=== PATIENT | female | born 1950 | race Caucasian/White ===

== ENCOUNTER → 2017-01-16 | Outpatient (CLI) | payer MEDICARE ==
[~2017-01-16] MED LIST: ATIVAN1 MG PO; LISINOPRIL10 MG PO; METOPROLOL100 MG PO
== END | disposition home or self-care (01) ==
LOC: US 01-02 12:30
DX: Z12.31 Encounter for screening mammogram for malignant neoplasm of breast (principal); I65.23 Occlusion and stenosis of bilateral carotid arteries; I10 Essential (primary) hypertension

== ENCOUNTER 2019-01-23 06:20 | Inpatient (IN) | payer MEDICARE ==
[2019-01-23] VITALS (52 sets, daily range): BP systolic 73–147; BP diastolic 00–83
[~2019-01-23] VITALS: Ht 162.6 cm; Wt 57.0 kg
--- NOTE | ~2019-01-23 | PR ---
[place], [place] PROGRESS NOTE NAME: RAQUEL PITTS UNIT #: [id number] ROOM: 407 DOCTOR: BENITA PRUITT MD,BREANN BIRTHDATE: [birth year] DOS: 01/28/2019 SUBJECTIVE: The patient was noted comfortable at this time, resting in the bed this morning of assessment was planned for the cardiac workup patient's stress testing. Plan to be done today. From pulmonary standpoint, the patient continued to do very well with current medical management with improvement in reduction of symptoms of shortness of breath. There was no coughing, wheezing stated by the patient at this time. OBJECTIVE: GENERAL: She was comfortably resting at this morning of assessment. VITAL SIGNS: Normal temperature, respiratory rate 20, heart rate 92, blood pressure 130/79. Pulse oxygen saturation on 3 L nasal cannula 94% saturation recorded. HEENT: Head was atraumatic. Eyes nonicterus. NECK: Supple. CARDIOVASCULAR: S1, S2 audible. LUNGS: Without any wheezing or crackles at this time. ABDOMEN: Soft, nontender. Bowel sounds present. EXTREMITIES: The patient was noted without any acute edema. MUSCULOSKELETAL: Without acute deformities. IMPRESSION: The patient with resolving and improving acute respiratory failure with hypoxia and hypercapnia, abnormal troponin to rule out coronary artery disease. PLAN OF MANAGEMENT: No changes in the plan of management at this time. Continue to follow the current medical management, plan and proceed with the cardiac workup. The patient already started tapering dose of prednisone, to follow the management of that. BREANN JOY MD CM:PNTRANS [id number] BRENAN PRUITT MD 01/28/19 2323 interface
--- NOTE | ~2019-01-23 | PR ---
[place], [place] PROGRESS NOTE [id number] UNIT #: [id number] ROOM: 404 DOCTOR: BENITA PRUITT MD,BREANN BIRTHDATE: [birth year] DOS: 01/29/2019 SUBJECTIVE: She has been noted comfortable at this time, resting in the bed, underwent cardiac stress testing yesterday. She denies symptoms of fever or chills. Denies symptoms of hemoptysis. The ejection fraction noted 59% with the stress testing yesterday. There was no evidence of ischemia or infarction was reported. PHYSICAL EXAMINATION: GENERAL: She was currently sitting comfortably in the bed this morning of assessment. VITAL SIGNS: Normal temperature, respiratory rate 16, heart rate 89, and blood pressure 149/79. Pulse oxygen saturation on 3 liters nasal cannula 94% saturation. HEENT: Examination shows head was atraumatic. Eyes nonicterus. NECK: Supple. CARDIOVASCULAR: S1, S2 audible. LUNGS: Noted moderate decreased breath sounds noted in the lungs bilaterally. ABDOMEN: Soft, nontender. IMPRESSION: Stable respiratory status, resolving acute hypercapnic hypoxic respiratory failure. Abnormal troponin, significance unknown. PLAN OF MANAGEMENT: No changes in the plan of management, discharge planning could be started, oral medications and home oxygen assessment was ordered prior to discharge. Other therapy, plan of management. Additional treatment changes made based on progression of illness. Outpatient ____ the patient recommended post-discharge. BREANN JOY MD CM:PNTRANS [id number] BREANN PRUITT MD 01/29/19 1504 interface
--- NOTE | ~2019-01-23 | PR ---
[place], [place] PROGRESS NOTE [id number] UN[facility] #: [id number] ROOM: [facility] DOCTOR: BRANDI BALL,PANCHO BIRTHDATE: [birth year] DOS: 01/25/2019 CARDIOLOGY FOLLOWUP VISIT REASON FOR VISIT: Elevated cardiac enzymes and sinus tachycardia. SUBJECTIVE: The patient is alert. She is off the ventilator yesterday. Denies any chest pain. Still short of breath. No PND, no orthopnea, no palpitations or dizziness. No nausea or vomiting. REVIEW OF SYSTEMS: Review of 10 systems negative except as mentioned above. PHYSICAL EXAMINATION: VITAL SIGNS: Blood pressure 118/65, pulse 96, respiratory rate was 18. RHYTHM STRIPS: The patient in sinus rhythm with ventricular ectopy. GENERAL: Alert, comfortable, in no acute distress. HEAD AND NECK: Pupils are round and equal. No jaundice. TONGUE: Moist and pharynx clear. NECK: Supple, no distended neck veins. No carotid bruit. CHEST: Symmetrical, nontender. LUNGS: A few scattered rhonchi. Good air entry bilaterally. HEART: Slightly irregular. No S3. Grade 1/6 systolic murmur. ABDOMEN: Benign, nontender. EXTREMITIES: Showed no edema. Distal pulses palpable. SKIN: Warm and dry. No cyanosis, no clubbing. NEUROLOGIC: The patient is alert with no focal neurologic deficit. RECTAL: Deferred. GENITOURINARY: Deferred. PSYCHIATRIC: The patient is alert with good mood and affect. MUSCULOSKELETAL: No joint tenderness, no swelling. MEDICATIONS: Reviewed. LABORATORY DATA: Reviewed. IMPRESSION: 1. Acute respiratory failure, currently stable. The patient off ventilator. 2. Elevated troponin, likely type 2 non-ST elevation myocardial infarction from demand ischemia. 3. Left ventricular dysfunction with ejection fraction 35% with apical anterior wall motion abnormality, slightly dilated apex, possible Takotsubo syndrome versus ischemic heart disease. 4. Chronic obstructive pulmonary disease exacerbation. 5. Sinus tachycardia. 6. Ventricular ectopy. RECOMMENDATIONS: 1. Continue current medications including beta blockers. 2. Add lisinopril 2.5 mg once daily for left ventricular dysfunction. 3. The patient has no volume overload, has no need for any diuretics at this [place], [place] PROGRESS NOTE NAME: RAQUEL PITTS UNIT #: [id number] ROOM: [facility] DOCTOR: BRANDI BALL,PANCHO BIRTHDATE: [birth year] time. 4. The patient can be transferred due to moderate stepdown. 5. Tentative Lexiscan stress test on Monday versus cardiac catheterization, this will be finalized during the weekend based on her symptoms and hospital course. Above recommendation discussed with the patient and her family members who were at bedside and all her questions were answered. Risks and complications of cardiac catheterization, angioplasty, stent and also possible bypass were discussed with the patient and she will think about if she wanted to go for open heart surgery if she needs it. If she does not want open heart surgery, probably I would not recommend cardiac catheterization and proceed with Lexiscan stress test on Monday. PANCHO PAZ MD CM:PNTRANS 01 8 PNACHO PAZ MD 01/26/19 0159 interface
--- NOTE | ~2019-01-23 | PR ---
[place], [place] PROGRESS NOTE NAME: [facility]IT[id number] UNIT #: [id number] ROOM: 404 DOCTOR: BENITA PRUITT MD,BREANN BIRTHDATE: [birth year] DOS: 01/24/2019 PULMONARY CRITICAL CARE EVALUATION AND MANAGEMENT SUBJECTIVE: The patient was transferred from the ER and remains in the Intensive Care Unit. The patient was also started on fractionated heparin because of elevated troponin, possible consideration of non-ST segment elevation myocardial infarction. The patient has been sedated with intravenous drip and Versed combination. This morning, the patient's sedation was decreased, she was noted fully awake and alert, a little bit anxious, but able to follow vocal commands moving the extremities. She has not been noted much secretion production, endotracheal aspirate, which was done in the last 24 hours. The patient has not been reported any major acute hemodynamic instability, which were new, but is required vasopressor use with Levophed, which have been gradually titrated down with improvement in the hypotension. She was noted with mild sinus tachycardia. The patient has been started this morning on the Lopressor, which has been usually taking home setting per Cardiology advice. The feeding was continued the trophic feeding, which has been tolerated without difficulty. REVIEW OF SYSTEMS: Could not be completed as the patient is intubated. OBJECTIVE: VITAL SIGNS: Temperature noted as normal, respiratory rate 20-22, heart rate 92-99. Lately, the patient's heart rate was noted 123 beats per minute. Blood pressure ranging between 92/46-136/68. Intake recorded as 5140/3100 mL, positive 2 liters. Pulse oxygen saturation 30% oxygen on mechanical ventilator, noted as 100% saturation of oxygen. HEENT: The patient is orally intubated, orogastric tube is in place. NECK: Supple. Head was atraumatic. Eyes nonicterus. CARDIOVASCULAR: S1, S2 audible. LUNGS: Noted without any crackles. Moderate decreased breath sounds noted in the lungs bilaterally. ABDOMEN: Soft, nontender and flat. EXTREMITIES: Without any acute edema. MUSCULOSKELETAL: Without any acute deformities. CENTRAL NERVOUS SYSTEM: The patient noted awake and alert. LABORATORY DATA: Arterial blood gas that was done on 50% oxygen yesterday afternoon, pH of 7.32, pCO2 of 43, pO2 of 34. Arterial blood gas that was done this morning, assist control, volume control, mechanical ventilation as pH of 7.33, pCO2 of 45, pO2 of 69.9. Phosphorus noted as 2.1, which was low. Magnesium was 1.8. CBC: WBC count 17.4, hemoglobin 12.7, platelet count was normal. The BMP that was done this morning, glucose 180, BUN normal, creatinine was normal. Endotracheal aspirate culture normal carolynn preliminary. Gram stain many gram-positive cocci in pairs and chains with many white blood cells. IMAGING STUDIES: Chest x-ray does not show any acute pulmonary infiltration, increased interstitial marking were noted yesterday. CTA of the chest that was completed yesterday was reviewed PACS images does not show evidence of acute [place], [place] PROGRESS NOTE NAME: RAQUEL PITTS UNIT #: [id number] ROOM: [facility] DOCTOR: BENITA PRUITT MD,[facility] BIRTHDATE: [birth year] pulmonary embolism. In addition to that increased interstitial infiltration noted predominance somewhat to the lower lobe. There was no evidence of honeycombing. Small basilar area of atelectasis was noted with associated very small pleural effusions. There were no abnormal lymphadenopathy. IMPRESSION: 1. The patient who has been currently admitted to the hospital was noted with acute hypoxic respiratory failure with severe hypercapnia. 2. The patient with acute exacerbation of chronic obstructive pulmonary disease. 3. Rule out non-ST segment elevation myocardial infarction. 4. Sinus tachycardia. 5. Refeeding syndrome with hypophosphatemia. 6. The patient with acute tracheobronchitis. 7. Rule out interstitial lung disease as well. 8. Overall debility. 9. Hyperglycemia secondary to corticosteroids administration. PLAN OF MANAGEMENT: The patient has been started on CPAP trial. The patient's CPAP 5, pressure support of 10, may need some ____ because of anxiety to complete the trial of the CPAP mechanical ventilator if tolerated. Discontinue other sedation medications. Continue bronchodilators. Continue corticosteroids. Continue vasopressor and titrate off with improvement in the hypotension. Continue ventilator bundle management. Supplementation of the ____ will be done accordingly. If the patient does get liberated from mechanical ventilation, she will be ordered the bilevel treatment post-liberation from mechanical ventilation support the respiratory failure because of the hypercapnia. Other therapy, plan of management, additional treatment changes needs to be made for this patient based on the progression of the illness. Total time for pulmonary critical care evaluation and management for the patient's today visit was 39 minutes. [place], [place] PROGRESS NOTE NAME: RAQUEL PITTS UNIT #: [id number] ROOM: [facility] DOCTOR: BREANN WARREN MD BIRTHDATE: [birth year] BREANN JOY MD CM:PNTRANS [id number] BREANN PRUITT MD 01/30/19 1549 interface
--- NOTE | ~2019-01-23 | EKG ---
[place], [place] ELECTROCARDIOGRAM REPORT NAME: RAQUEL PITTS UNIT #: [id number] ROOM: 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
--- NOTE | ~2019-01-23 | EKG ---
[place], [place] ELECTROCARDIOGRAM REPORT NAME: RAQUEL PITTS UNIT #: [id number] ROOM: [facility] DOCTOR: FABIANA DRAFT REPORT BIRTHDATE: [birth year] [facility] Test Date: 2019-01-23 Test Time: 10:36:21 Pat Name: RAQUEL PITTS Department: Room: [facility] 1 Gender: F Mdm Sr: Azra Wyatt : 1950 Requested By: FARIBA DUGAN Order Number: [id number] Reading MD: Chuy Rojas Measurements Intervals [place] Rate: 75 P: 70 PA: 136 QRS: 13 QRSD: 84 T: 54 QT: 415 QTc: 464 Interpretive Statements Sinus rhythm Probable left atrial enlargement Borderline low voltage, extremity leads No previous ECG available for comparison Electronically Signed On 01-24-2019 4:18:38 PDT by Chuy Rojas CM:EKGRPT:ELECTROCARDIOGRAM REPORT [id number] 0418 FARIBA ANDERSON DRAFT REPORT FARIBA DUGAN DO
--- NOTE | ~2019-01-23 | PR ---
[place], [place] PROGRESS NOTE NAME: RAQUEL PITTS UNIT #: [id number] ROOM: [facility] DOCTOR: BREANN WARREN MD BIRTHDATE: [birth year] DOS: 01/26/2019 PULMONARY PROGRESS NOTE SUBJECTIVE: She has been noted comfortable at this time, resting in the bed. The patient using oxygen supplementation with the nasal cannula. Denies symptoms of fever, chills, coughing or sputum expectoration. Wheezing was gradually improving, but not resolved. OBJECTIVE: GENERAL: This morning, the patient is resting comfortably, sitting on the bed this morning of assessment. VITAL SIGNS: Normal temperature, respiratory rate 20, heart rate of 96, blood pressure 146/84. Pulse oxygen saturation on 4 liters nasal cannula 98% saturation. HEENT: Examination shows head was atraumatic. Eyes nonicterus. NECK: Supple. CARDIOVASCULAR: S1, S2 audible. LUNGS: The patient was noted without any wheeze or crackles at the present time. ABDOMEN: Soft, nontender. Bowel sounds present. EXTREMITIES: No new change. IMPRESSION: 1. The patient with resolving acute hypercapnic hypoxic respiratory failure gradually and progressively. 2. The patient with elevated troponin, currently considered with possibility of non-ST segment elevation myocardial infarction, workup and management is in progress. 3. Overall debility, which is improving. PLAN OF MANAGEMENT: Gradual reduction of steroids will be started. Continuation of bronchodilators. Follow the Cardiology workup for this patient as well for the prominent troponin and possible non-ST segment elevation myocardial infarction. [place], [place] PROGRESS NOTE NAME: RAQUEL PITTS UNIT #: [id number] ROOM: [facility] DOCTOR: BREANN WARREN MD BIRTHDATE: [birth year] BREANN JOY MD CM:PNTRANS [id number] BREANN PRUITT MD 01/26/19 1508 interface
--- NOTE | ~2019-01-23 | PR ---
[place], [place] PROGRESS NOTE NAME: RAQUEL PITTS UNIT #: [id number] ROOM: 407 DOCTOR: ASHLEY AUGUSTE BIRTHDATE: [birth year] DOS: 01/28/2019 CARDIOLOGY PROGRESS NOTE The patient is being seen in followup for cardiomyopathy, non-ST elevation myocardial infarction. SUBJECTIVE: The patient is feeling well. Denies chest pain or shortness of breath. There were no overnight issues. OBJECTIVE: VITAL SIGNS: Afebrile, pulse in the 90s, respirations 20, blood pressure 143/75, saturating 92% on 3 liters nasal cannula. GENERAL APPEARANCE: She is a petite lady. She was evaluated in the stress lab, seen sitting up, in no distress. NECK: Supple. She has a right-sided triple lumen IJ. No bruits. RESPIRATORY: Diminished. No rales. CARDIOVASCULAR: Regular rhythm, normal rate. No murmurs. ABDOMEN: Positive bowel sounds. Soft, nontender. EXTREMITIES: Free of edema. LABORATORY DATA: Hemoglobin 10.9, platelets 141, creatinine 0.68, troponin peaked at 1.56. Myocardial perfusion study from today demonstrated normal LV systolic function with no wall motion abnormalities. Overall, perfusion appeared normal as well with no fixed or reversible defects. IMPRESSION: 1. Non-ST elevation myocardial infarction, question demand ischemia versus Takotsubo. 2. Cardiomyopathy, EF 35% on echo, was normal today on SPECT. Possible resolving Takotsubo cardiomyopathy. 3. Acute hypercapnic hypoxic respiratory failure, resolved and extubated. 4. History of hypertension. RECOMMENDATIONS: 1. Continue guideline-directed medical therapy. 2. We will repeat limited echo with acoustic contrast for better imaging of the LV, her original echo was done when she was intubated. 3. Again, no obvious signs of ischemia on her perfusion imaging study, this could be resolving Takotsubo. [place], [place] PROGRESS NOTE NAME: RAQUEL PITTS UNIT #: [id number] ROOM: 407 DOCTOR: ASHLEY AUGUSTE BIRTHDATE: [birth year] Dr. ASHLEY AUGUSTE MD CM:MIRELA [id number] ASHLEY AUGUSTE 01/28/19 2252 interface
--- NOTE | ~2019-01-23 | ST ---
[place], [place] EXERCISE STRESS TEST REPORT NAME: RAQUEL PITTS [facility] #: [id number] UNIT #: [id number] ROOM: 407 DOCTOR: ASHLEY AUGUSTE BIRTHDATE: [birth year] DOS: 01/28/2019 INDICATION: [id number]-[id number] OK, new onset cardiomyopathy. PROTOCOL: Regadenoson SPECT myocardial perfusion imaging. Baseline EKG showed sinus rhythm with normal axis and normal intervals, with frequent PVCs. Baseline blood pressure was 122/70 with a resting pulse of 96. A 0.4 mg of regadenoson was injected per protocol followed by radioisotope injection. There was no chest pain noted. Stress EKG showed no evidence of ischemia and no arrhythmias were noted. Frequent PVCs were observed. IMPRESSION: 1. No evidence of regadenoson-induced ischemia on stress EKG. 2. Baseline EKG, sinus rhythm with frequent PVCs. 3. Nuclear images to be reported separately. Dr. ASHLEY AUGUSTE MD CM:STRESS:EXERCISE STRESS TEST REPORT [id number] 1409 ASHLEY AUGUSTE
--- NOTE | ~2019-01-23 | EKG ---
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
--- NOTE | ~2019-01-23 | CON ---
[place], [place] REPORT OF CONSULTATION NAME: RAQUEL PITTS UNIT #: [id number] ROOM: [facility] DOCTOR: PANCHO PAZ MD BIRTHDATE: [birth year] DOS: 01/23/2019 REASON FOR CONSULTATION: Elevated troponin. HISTORY OF PRESENT ILLNESS: This is a 68-year-old patient with history of hypertension, COPD, tobacco use, presents to Emergency Room for respiratory distress. Initially, the patient received CPAP and BiPAP and subsequently requiring intubation in the Emergency Room. She was admitted to the ICU and Cardiology consulted due to elevated cardiac troponins. She had no prior history of coronary artery disease. History was obtained from the chart since the patient is on ventilator and sedated. Apparently, the patient was hypertensive upon arrival to the Emergency Room. The patient was seen and she was intubated and sedated, hence review of systems are limited. REVIEW OF SYSTEMS: Limited due patient was on ventilator and sedated. Apparently, there is no chest pain at home. PAST MEDICAL HISTORY: 1. Hypertension. 2. COPD. 3. Tobacco use. PAST SURGICAL HISTORY: Nil contributory. SOCIAL HISTORY: The patient does smoke. FAMILY HISTORY: From chart, history of hypertension and myocardial infarction. ALLERGIES: No known drug allergies. HOME MEDICATIONS: Reviewed. ALLERGIES: Reviewed. PHYSICAL EXAMINATION: VITAL SIGNS: Blood pressure 108/67, pulse 81, respiratory rate 13, weight 57 kilos. GENERAL: The patient was on ventilator and sedated. HEENT: Pupils are unable to assess since the patient was sedated. NECK: Supple. No distended neck veins. No carotid bruits. CHEST: Symmetrical. LUNGS: A few scattered rhonchi. HEART: Regular rhythm, no S3. Grade 1/6 systolic murmur. ABDOMEN: Benign. Bowel sounds normal. EXTREMITIES: Showed trace edema. Distal pulses palpable. SKIN: Warm and dry. No cyanosis, no clubbing. RECTAL: Deferred. GENITOURINARY: Deferred. NEUROLOGIC: Unable to assess since the patient is on ventilator. [place], [place] REPORT OF CONSULTATION NAME: RAQUEL PITTS UNIT #: [id number] ROOM: [facility] DOCTOR: PANCHO PAZ MD BIRTHDATE: [birth year] MEDICATIONS AND LABORATORY DATA: Reviewed. Echo from 06/2018 reviewed. Cardiac troponins of 0.038 and 1.15. EKG showed no acute ischemic changes. IMPRESSION: 1. Respiratory failure, on mechanical ventilation. 2. Borderline elevation of troponin, most likely secondary to demand ischemia. Apparently, there is no chest pain. 3. History of hypertension. 4. Hypotensive shock. 5. History of chronic obstructive pulmonary disease. 6. History of tobacco use. RECOMMENDATIONS: 1. Continue her home aspirin, statins as well as her heparin. 2. No beta yvonne due to her hypotension. 3. Wean off her IV Levophed as her blood pressure tolerates. 4. Check 2D echo for LV function and valvular function. 5. Pulmonary consultants were on case. 6. CT of the chest is pending. Further recommendation for ischemia workup, stress test versus cardiac catheterization will be decided based on her hospital course, her labs. There was no family at bedside at the time of examination. PANCHO PAZ MD CM:CONSTR:REPORT OF CONSULTATION 2047 01/24/19 0602 interface
--- NOTE | ~2019-01-23 | PR ---
[place], [place] PROGRESS NOTE NAME: RAQUEL PITTS UNIT #: [id number] ROOM: 407 DOCTOR: PANCHO PAZ MD BIRTHDATE: [birth year] DOS: 01/26/2019 CARDIOLOGY FOLLOWUP VISIT REASON FOR VISIT: Elevated cardiac enzymes and cardiomyopathy. SUBJECTIVE: The patient is feeling better. She is sitting at bedside in her chair. Denies any chest pain. Breathing is much better. No shortness of breath. No PND, no orthopnea. No nausea or vomiting. REVIEW OF SYSTEMS: Review of 10 systems negative except as mentioned above. PHYSICAL EXAMINATION: VITAL SIGNS: Blood pressure 146/84, pulse 96, respiratory rate is 20. RHYTHM STRIPS: The patient in sinus rhythm. GENERAL: Alert, comfortable, in no acute distress. NECK: Supple, no distended neck veins, no carotid bruit. CHEST: Symmetrical, nontender. LUNGS: Clear to auscultation bilaterally. HEART: Regular rhythm, no S3. Grade 1/6 systolic murmur. ABDOMEN: Benign, nontender. Bowel sounds normal. EXTREMITIES: Showed no edema. Distal pulses palpable. SKIN: Warm and dry. No cyanosis, no clubbing. NEUROLOGIC: Alert with no focal neurologic deficit. IMPRESSION: 1. Acute respiratory failure with hypoxia. 2. Non-ST elevation myocardial infarction. 3. Left ventricular dysfunction, ejection fraction 35%. 4. Ventricular ectopy. 5. Hypertension. 6. Hypotension on presentation, resolved. RECOMMENDATIONS: 1. Continue current medications. 2. Continue her beta blockers, SHASHI inhibitors and Aldactone. 3. Lexiscan stress test was scheduled for tomorrow. 4. Further recommendation based on her Lexiscan findings. 5. No family at bedside at the time of my examination. [place], [place] PROGRESS NOTE NAME: RAQUEL PITTS UNIT #: [id number] ROOM: 407 DOCTOR: PANCHO PAZ MD BIRTHDATE: [birth year] PANCHO PAZ MD CM:PNTRANS 0632 [id number] PANCHO PAZ MD 01/27/19 3846 interface
--- NOTE | ~2019-01-23 | PR ---
[place], [place] PROGRESS NOTE NAME: RAQUEL PITTS UNIT #: [id number] ROOM: 404 DOCTOR: ASHLEY AUGUSTE BIRTHDATE: [birth year] DOS: 01/29/2019 CARDIOLOGY FOLLOWUP. The patient has been seen in followup for cardiomyopathy, non-ST elevation myocardial infarction. SUBJECTIVE: The patient is feeling better. Denies any chest pain or shortness of breath. No issues overnight. She remained in sinus rhythm with occasional PVCs. Repeat limited echo from today showed completely normal ejection fraction with normal wall motion. Stress test from yesterday showed no evidence of ischemia. OBJECTIVE: VITAL SIGNS: Afebrile, pulse in the 80s, respirations 18, blood pressure 140/73, saturating 96% on 3 liters nasal cannula. GENERAL APPEARANCE: She is a petite lady, sitting up in bed, in no distress. NECK: Supple. JVP normal. No carotid bruits. Right-sided triple lumen IJ catheter. RESPIRATORY: Diminished. CARDIOVASCULAR: Regular rhythm, with normal rate. No murmurs. ABDOMEN: Positive bowel sounds. Soft, nontender. EXTREMITIES: Warm and well perfused. There is no edema. LABORATORY DATA: There is no new blood work. Repeat echocardiogram as described performed with LV contrast agent showed normal LV systolic function with an EF of 60-65% with normal wall motion. Perfusion study from yesterday showed no evidence of ischemia. EF was normal at 60%. ASSESSMENT: 1. Non-ST elevation myocardial infarction, question demand ischemia versus Takotsubo cardiomyopathy. 2. Cardiomyopathy, ejection fraction 35%, has resolved and now normal. Likely resolving Takotsubo cardiomyopathy. 3. Acute hypercapnic hypoxic respiratory failure, improving. 4. History of hypertension. RECOMMENDATION: 1. Continue current medical therapy. She has had normalization of her LV ejection fraction. 2. Reasonable to continue aspirin and atorvastatin. 3. Okay for discharge from Cardiology standpoint. She will follow up with Dr. Rojas in the office. We will sign off at this time. Please call with any questions. [place], [place] PROGRESS NOTE NAME: RAQUEL PITTS UNIT #: [id number] ROOM: 404 DOCTOR: ASHLEY AUGUSTE BIRTHDATE: [birth year] DrChacorta AUGUSTE MD CM:PNTRANS 30 [phone] ASHLEY AUGUSTE 01/29/192357 interface
--- NOTE | ~2019-01-23 | PR ---
[place], [place] PROGRESS NOTE [id number] #: [id number] ROOM: [facility] DOCTOR: BENITA PRUITT MD,BREANN BIRTHDATE: [birth year] DOS: 01/25/2019 SUBJECTIVE: The patient was noted comfortable at this time, successfully liberated from mechanical ventilator, resting comfortably in the bed this morning of assessment. Denies symptoms of fever or chills. There were no symptoms of hemoptysis reported by the patient. There were no symptoms of pain of the lower extremity. Denies any nausea, vomiting, or diarrhea. She was noted with general weakness and fatigue. The wheezing was still noted as well. The patient has used the BiPAP as well as intermittently during the day, continue at nighttime. Low-grade fever was also noted in the last 24 hours. Remaining systems were reviewed. They were noted all negative. OBJECTIVE: VITAL SIGNS: Blood pressure 124/67-130/67. The temperature was noted 99.2 degrees normal temperature, respiratory rate 19-18, heart rate 121-164. The pulse oxygen saturation recorded on 4 liter nasal cannula this morning, 98% with the BiPAP is 93% saturation. HEENT: Examination shows head was atraumatic. Eyes nonicterus. NECK: Supple. CARDIOVASCULAR: S1, S2 is audible. LUNGS: The patient was noted with moderate expiratory wheezing noted, decreased since admission. There were no crackles. ABDOMEN: Flat, soft, nontender. Bowel sounds present. EXTREMITIES: Without acute edema. MUSCULOSKELETAL: Without acute deformities. CENTRAL NERVOUS SYSTEM: Cranial nerves 2-12 intact. LABORATORY DATA: Culture of the endotracheal aspirate was noted as normal carolynn, final culture results of 2 days ago. CMP this morning, BUN normal, creatinine normal, glucose 120. Total protein of 6.0. Blood culture, no bacterial growth from admission. PTT was 32 this morning. CBC this morning, WBC count 12.4, hemoglobin 10.9, hematocrit 34.0, platelet count was normal. IMPRESSION: 1. The patient with acute hypercapnic and hypoxemic respiratory failure. 2. Ongoing acute exacerbation of chronic obstructive pulmonary disease, possible bronchial asthma exacerbation, could be considered. 3. The patient with elevation in troponin, possible consideration non-ST segment elevation myocardial infarction followed by the Cardiology services. 4. General anxiety disorder. PLAN OF MANAGEMENT: Continue the current trial with the use of the BiPAP. Continue anticoagulation. Ordered the Cardiology Services. Oral diet has been started. The patient tolerated, it will be continued. Physical therapy consultation will be needed. The patient could be transferred from the ICU to the medical floor whenever desired a telemetry floor whenever desired. Bronchodilators to be continued the same frequency. The dose of Solu-Medrol remains the same with the changes will be made for this patient, possibly starting tomorrow based on further improvement of the ongoing respiratory [place], [place] PROGRESS NOTE NAME: RAQUEL PITTS UNIT #: [id number] ROOM: [facility] DOCTOR: BENITA PRUITT MD,BREANN BIRTHDATE: [birth year] symptoms. Continue antibiotic for the medical management of acute tracheobronchitis. Usual care, other therapy, plan of management, care plan and treatment. BREANN JOY MD CM:PNTRANS [id number] BREANN PRUITT MD 01/25/19 1314 interface
--- NOTE | ~2019-01-23 | CON ---
[place], [place] REPORT OF CONSULTATION NAME: RAQUEL PITTS UNIT #: [id number] ROOM: [facility] DOCTOR: BREANN WARREN MD BIRTHDATE: [birth year] DOS: 01/23/2019 PULMONARY CRITICAL CARE EVALUATION AND MANAGEMENT CONSULTATION REQUESTED BY: Hospitalist service. REASON FOR CONSULTATION: For assessment of current acute respiratory failure. HISTORY OF PRESENT ILLNESS: This is a 68-year-old white female patient who has been brought to the hospital by the ambulance. The history of the patient was obtained from the patient's family member, discussion with the physician who was assessed the patient in the Emergency Room and the nurse's notes. The patient arrived in the Emergency Room at 6:22 a.m. by the ambulance. The patient was noted as significant severe shortness of breath with diaphoresis at work. She was noted to have tachypnea and also noted tachycardia. The patient has been started on bilevel treatment in the Emergency Room. The BiPAP was not noted effective. She had arterial blood gases done later, which was noted significant hypercarbia as well. Because of increased work of breathing, the patient was intubated, started on mechanical ventilation. She has currently been getting mechanical ventilation, assist control, volume control, and mechanical ventilation. She has been noted with excess amount of secretion appeared to be purulent and thick, which was suctioned out by the respiratory therapy staff. She has been receiving IV Diprivan and also ordered for sedation and noted somewhat restless and noted intermittent coughing at times. REVIEW OF SYSTEMS: Could not be completed since the patient is currently intubated, noted on mechanical ventilation. PAST MEDICAL HISTORY: Reported as, 1. Hypertension. 2. Chronic tobacco use. She has not had any formal diagnosis of COPD, but was taking some inhaler prescribed by the primary care physician. SOCIAL HISTORY: The patient noted active tobacco use about a pack of cigarettes per day. She is still working. There has not been any history of illicit drug use or alcohol use reported by the family members. PAST SURGICAL HISTORY: Has been none major reported. FAMILY HISTORY: The patient reported for cancer, hypertension, and myocardial infarction. HOME MEDICATIONS: The only home medication list is metoprolol tartrate, but she also has possibly what I believed is a short-acting bronchodilators as ProAir or Ventolin inhaler. DRUG ALLERGY HISTORY: The patient noted no known drug allergies. PHYSICAL EXAMINATION: GENERAL: A 68-year-old white female patient noted somewhat restless at the [place], [place] REPORT OF CONSULTATION NAME: RAQUEL PITTS UNIT #: [id number] ROOM: [facility] DOCTOR: BENITA PRUITT MD,BREANN BIRTHDATE: [birth year] bedside seen in the Emergency Room. Height of 5 feet 4 inches, weight 125 pounds, BMI 21.5. VITAL SIGNS: Normal temperature, respiratory rate 28 on admission, currently noted about 12-18. Heart rate noted between 81-101, blood pressure on admission 73/51. Current blood pressure was noted as 95/38. Pulse oxygen saturation recorded as 100% oxygen. HEENT: The patient is currently intubated, noted on mechanical ventilation. Orogastric tube is being inserted. Head was atraumatic. NECK: Supple. CARDIOVASCULAR SYSTEM: S1, S2 is audible. LUNGS: Diffuse reduced breath sounds bilaterally with expiratory wheezing. There were no crackles heard. ABDOMEN: Soft, nontender. Bowel sounds present and flat. EXTREMITIES: Without acute edema. MUSCULOSKELETAL: Without any gross deformities. VISIBLE SKIN: No lesions or rashes. CENTRAL NERVOUS SYSTEM: The patient noted restless with change in mental status on admission, but has not been reported any gross focal neurologic deficit. LABORATORY DATA: CBC on admission this morning, WBC count 8.9, hemoglobin and hematocrit normal, platelet count normal. Eosinophils were elevated at 6.8%. PT/PTT this morning was normal on admission. The lactic acid normal on this admission. The CMP this morning, BUN 13, creatinine 1.11, glucose 143 and sodium 135. Chest x-ray, which were reviewed initially and later noted changes of COPD, hyperinflation, mild increase of interstitial pulmonary infiltration. Endotracheal tube noted the tip 4 cm above the bairon level. NG tube was also noted in the stomach. IMPRESSION: 1. The patient will be currently admitted to the hospital, patient noted with severe acute hypercapnic respiratory failure with possible hypoxia as well related to acute exacerbation of chronic obstructive pulmonary disease and possible consideration of bronchial asthma with eosinophilia type. 2. Mild elevation in creatinine with intravascular volume depletion as well. 3. History of chronic nicotine dependence as well. 4. Rule out pneumonia versus bronchitis, initiating cough with the current illness. 5. Hypotension, which is noted mild, related to the intravascular volume depletion, very likely cause. PLAN OF MANAGEMENT: The patient has been started on the ventilator dependent management, vasopressors in case of hypertension to be given, otherwise the plan is the intravenous fluids should result in improvement in the hypotension. DVT prophylaxis. Bronchodilator will be given for the patient albuterol every 4 hours. Chlorhexidine rinse administration. Nutritional support will be started as trophic feeding. Other additional treatment changes will be made based on progression of the illness. Total time in pulmonary critical care evaluation and management of the patient was 40 minutes. [place], [place] REPORT OF CONSULTATION NAME: RAQUEL PITTS UNIT #: [id number] ROOM: [facility] DOCTOR: BREANN WARREN MD BIRTHDATE: [birth year] BREANN JOY MD CM:CONSTR:REPORT OF CONSULTATION 1006 01/23/19 2124 interface
--- NOTE | ~2019-01-23 | PR ---
[place], [place] PROGRESS NOTE NAME: RAQUEL PITTS UNIT #: [id number] ROOM: 407 DOCTOR: BENITA PRUITT MD,BREANN BIRTHDATE: [birth year] DOS: 01/27/2019 SUBJECTIVE: The patient was noted comfortable at this time. The patient was transferred to the telemetry floor from the ICU. Had not been noted any hemodynamic instability. Doing well current medical management using the BiPAP as ordered at nighttime and p.r.n. during the day. There were no symptoms of fever or chills reported. Shortness of breath and coughing was resolving. OBJECTIVE: VITAL SIGNS: Recorded showed normal temperature, respiratory rate 17, heart rate 89, blood pressure 133/64. The pulse oxygen saturation on 3 liters nasal cannula, rest was 94% saturation. HEENT: Examination shows head was atraumatic. Eyes nonicterus. NECK: Supple. CARDIOVASCULAR: S1, S2 audible. LUNGS: Noted without any wheezing or crackles. ABDOMEN: Soft, nontender. Bowel sounds are present. EXTREMITIES: No new changes. IMPRESSION: Progressive and gradual resolution of the acute hypercapnic hypoxic respiratory failure, acute exacerbation of chronic obstructive pulmonary disease. PLAN OF MANAGEMENT: The patient was planned for the stress testing done tomorrow morning. Discontinue Solu-Medrol, which the patient on oral prednisone from tomorrow morning. The steroids will be gradually decreased progressively. The patient will be started on oral prednisone. BREANN JOY MD CM:PNMANOJ 1416 06 BREANN PRUITT MD 01/27/192006 interface
[2019-01-23 06:55] LABS: ABG HCO3 24.2 mmol/l (22-26); ABG O2 SATURATION 99.6 % (95-97); ARTERIAL BLOOD GAS PCO2 57.3 mmHg (35-45); ARTERIAL BLOOD GAS PH 7.245 (7.35-7.45)
[2019-01-23 07:12] LABS: BASO # 0.1 10*3/uL (0.0-0.1); BASO % 0.8 % (0.0-1.0); EOS # 0.6 10*3/uL (0.0-0.4); EOS % 6.8 % (1.0-4.0); HEMOGLOBIN 14.5 g/dl (12.0-16.0); LYMPH # 3.1 10*3/uL (1.3-4.4); LYMPH % 34.6 % (27.0-41.0); MEAN CELL VOLUME 103.4 fl (81.0-99.0); MEAN CORPUSCULAR HGB 33.3 pg (27.0-31.0); MEAN CORPUSCULAR HGB CONC 32.2 g/dl (33.0-37.0); MEAN PLATELET VOLUME 11.1 fl (9.6-12.3); MONO # 0.5 10*3/uL (0.1-1.0); MONO % 5.2 % (3.0-9.0); NEUT # 4.7 10*3/uL (2.3-7.9); NEUT % 52.4 % (47.0-73.0); PLATELET COUNT AUTOMATED 263 10*3/uL (130-400); RED BLOOD COUNT 4.35 10*6/uL (4.10-5.10); RED CELL DISTRI WIDTH 12.6 % (0-14.5); WHITE BLOOD COUNT 8.9 10*3/uL (4.8-10.8)
[2019-01-23 07:23] LABS: ACT PARTIAL THROMBO TIME 22.9 SECONDS (20.0-32.1)
[2019-01-23 07:30] LABS: CREATININE 1.11 mg/dL (0.55-1.02); TOTAL PROTEIN 7.7 gm/dL (6.4-8.2)
[2019-01-23 07:31] LABS: TROPONIN I 0.038 ng/ml (<0.045)
[2019-01-23] MEDS ORDERED: METOPROLOL TART50 M1 PO (10:05)
[2019-01-23] MEDS ORDERED: PROAIR HFA8.5 GM INH (10:05)
[2019-01-23] MEDS ORDERED: LOSARTAN-HCTZ1 EAC2 PO (10:05)
[2019-01-23 10:38] LABS: ABG BASE EXCESS -2.9 mmol/L (-2.0-2.0); ABG HCO3 24.2 mmol/l (22-26); ABG O2 SATURATION 98.2 % (95-97); ARTERIAL BLOOD GAS PCO2 53.2 mmHg (35-45); ARTERIAL BLOOD GAS PH 7.278 (7.35-7.45); ARTERIAL BLOOD GAS PO2 98.1 mmHg (80-90)
[2019-01-23 15:59] LABS: ABG BASE EXCESS -1.5 mmol/L (-2.0-2.0); ABG HCO3 24.3 mmol/l (22-26); ARTERIAL BLOOD GAS PH 7.338 (7.35-7.45)
[2019-01-24] VITALS (41 sets, daily range): BP systolic 92–173; BP diastolic 46–92
[2019-01-24 03:58] LABS: HEMATOCRIT 38.8 % (37.0-47.0); HEMOGLOBIN 12.7 g/dl (12.0-16.0); MEAN CORPUSCULAR HGB 33.1 pg (27.0-31.0); MEAN CORPUSCULAR HGB CONC 32.7 g/dl (33.0-37.0); MEAN PLATELET VOLUME 10.5 fl (9.6-12.3); PLATELET COUNT AUTOMATED 208 10*3/uL (130-400); RED BLOOD COUNT 3.84 10*6/uL (4.10-5.10); RED CELL DISTRI WIDTH 12.7 % (0-14.5); WHITE BLOOD COUNT 17.4 10*3/uL (4.8-10.8)
[2019-01-24 04:15] LABS: PHOSPHOROUS 2.1 mg/dL (2.5-4.9)
[2019-01-24 04:16] LABS: PLATELET SUFFICIENCY NORMAL (NORMAL); TOTAL CELLS COUNTED 100 #CELLS
[2019-01-24 07:19] LABS: ABG HCO3 23.6 mmol/l (22-26); ABG O2 SATURATION 96.4 % (95-97); ARTERIAL BLOOD GAS PCO2 45.8 mmHg (35-45); ARTERIAL BLOOD GAS PH 7.331 (7.35-7.45); ARTERIAL BLOOD GAS PO2 69.9 mmHg (80-90)
[2019-01-24 07:49] LABS: VITAMIN D, 25-HYDROXY 32.9 ng/mL (30-100)
[2019-01-24 08:06] LABS: BUN 7 mg/dl (7-24); CHLORIDE 109 mmol/L (98-107); CREATININE 0.78 mg/dL (0.55-1.02); POTASSIUM 3.6 mmol/L (3.5-5.1); SODIUM 141 mmol/L (136-145)
[2019-01-24 11:33] LABS: ABG BASE EXCESS -2.3 mmol/L (-2.0-2.0); ABG HCO3 22.1 mmol/l (22-26); ABG O2 SATURATION 96.9 % (95-97); ARTERIAL BLOOD GAS PCO2 39.4 mmHg (35-45); ARTERIAL BLOOD GAS PH 7.369 (7.35-7.45); ARTERIAL BLOOD GAS PO2 78.6 mmHg (80-90)
[2019-01-24 15:36] LABS: ABG BASE EXCESS -0.6 mmol/L (-2.0-2.0); ABG HCO3 23.2 mmol/l (22-26); ABG O2 SATURATION 97.1 % (95-97); ARTERIAL BLOOD GAS PCO2 37.6 mmHg (35-45); ARTERIAL BLOOD GAS PH 7.408 (7.35-7.45); ARTERIAL BLOOD GAS PO2 81.6 mmHg (80-90)
[2019-01-25] VITALS: BP 135/67
[2019-01-25 04:00] VITALS: BP 135/71
[2019-01-25 06:15] LABS: HEMOGLOBIN 10.9 g/dl (12.0-16.0); MEAN CELL VOLUME 101.8 fl (81.0-99.0); MEAN CORPUSCULAR HGB 32.6 pg (27.0-31.0); MEAN CORPUSCULAR HGB CONC 32.1 g/dl (33.0-37.0); MEAN PLATELET VOLUME 11.9 fl (9.6-12.3); RED BLOOD COUNT 3.34 10*6/uL (4.10-5.10); RED CELL DISTRI WIDTH 13.4 % (0-14.5); WHITE BLOOD COUNT 12.4 10*3/uL (4.8-10.8)
[2019-01-25 06:21] LABS: PLATELET COUNT AUTOMATED 140 10*3/uL (130-400)
[2019-01-25 06:26] LABS: ALBUMIN 3.2 gm/dl (3.1-4.5); ALKALINE PHOSPHATASE 43 U/L (45-117); CHLORIDE 110 mmol/L (98-107); CREATININE 0.59 mg/dL (0.55-1.02); POTASSIUM 3.9 mmol/L (3.5-5.1); SGOT/AST 22 IU/L (3-35); SGPT/ALT 29 U/L (12-78); SODIUM 142 mmol/L (136-145)
[2019-01-25 06:31] LABS: BUN 10 mg/dl (7-24)
[2019-01-25 07:31] LABS: TOTAL CELLS COUNTED 100 #CELLS
[2019-01-25 07:32] LABS: PLATELET SUFFICIENCY NORMAL (NORMAL)
[2019-01-25 07:53] VITALS: BP 133/67
[2019-01-25 11:38] VITALS: BP 136/74
[2019-01-25 16:00] VITALS: BP 141/71
[2019-01-25 20:00] VITALS: BP 127/65
[2019-01-26] VITALS: BP 127/71
[2019-01-26 02:16] LABS: HEMATOCRIT 33.1 % (37.0-47.0); HEMOGLOBIN 10.9 g/dl (12.0-16.0); MEAN CELL VOLUME 102.5 fl (81.0-99.0); MEAN CORPUSCULAR HGB 33.7 pg (27.0-31.0); MEAN CORPUSCULAR HGB CONC 32.9 g/dl (33.0-37.0); MEAN PLATELET VOLUME 10.1 fl (9.6-12.3); PLATELET COUNT AUTOMATED 141 10*3/uL (130-400); RED BLOOD COUNT 3.23 10*6/uL (4.10-5.10); RED CELL DISTRI WIDTH 13.5 % (0-14.5); WHITE BLOOD COUNT 9.2 10*3/uL (4.8-10.8)
[2019-01-26 02:30] LABS: ALBUMIN 3.2 gm/dl (3.1-4.5); ALKALINE PHOSPHATASE 43 U/L (45-117); BUN 11 mg/dl (7-24); CHLORIDE 107 mmol/L (98-107); CREATININE 0.68 mg/dL (0.55-1.02); POTASSIUM 3.9 mmol/L (3.5-5.1); SGOT/AST 19 IU/L (3-35); SGPT/ALT 34 U/L (12-78); SODIUM 142 mmol/L (136-145); TOTAL PROTEIN 6.1 gm/dL (6.4-8.2)
[2019-01-26 02:57] LABS: TOTAL CELLS COUNTED 100 #CELLS
[2019-01-26 02:58] LABS: PLATELET SUFFICIENCY LOW (NORMAL)
[2019-01-26 04:00] VITALS: BP 141/83
[2019-01-26 08:00] VITALS: BP 142/80
[2019-01-26 12:00] VITALS: BP 146/84
[2019-01-26 16:00] VITALS: BP 150/94
[2019-01-26 20:00] VITALS: BP 142/79
[2019-01-27] VITALS: BP 141/82
[2019-01-27 08:00] VITALS: BP 138/68
[2019-01-27 12:00] VITALS: BP 133/64
[2019-01-27 16:00] VITALS: BP 151/83
[2019-01-27 20:00] VITALS: BP 158/88
[2019-01-28] VITALS: BP 138/79
[2019-01-28 07:23] LABS: BUN 11 mg/dl (7-24); CHLORIDE 101 mmol/L (98-107); CREATININE 0.68 mg/dL (0.55-1.02); POTASSIUM 3.6 mmol/L (3.5-5.1); SODIUM 139 mmol/L (136-145)
[2019-01-28 12:00] VITALS: BP 143/75
[2019-01-28 16:00] VITALS: BP 135/74
[2019-01-28 20:00] VITALS: BP 118/75
[2019-01-29] VITALS: BP 120/57
[2019-01-29 08:00] VITALS: BP 141/79; BP 148/79
[2019-01-29 12:00] VITALS: BP 140/73
[2019-01-29] MEDS ORDERED: LISINOPRIL2.5 MG PO (15:12)
[2019-01-29] MEDS ORDERED: ATORVASTATIN CA20 M1 PO (15:12)
[2019-01-29] MEDS ORDERED: METOPROLOL SUCC50 M1 PO (15:12)
[2019-01-29] MEDS ORDERED: ALDACTONE25 MG PO (15:12)
[2019-01-29] MEDS ORDERED: DOXYCYCLINE100 M3 PO (15:12)
[2019-01-29] MEDS ORDERED: ASPIRIN ADULT L81 M2 PO (15:12)
[2019-01-29] MEDS ORDERED: PREDNISONE10 MG PO (15:12)
[2019-01-29 16:00] VITALS: BP 118/70
== END 2019-01-29 18:21 | disposition home or self-care (01) | DRG 871 ==
LOC: ED 06:20 → EDHOLD 07:42 → ICCU 07:42 → EDHOLD 07:57 → ICCU 08:05 → 4E 01-26 17:22
PROVIDERS: Emergency Medicine Emergency Medical Services; Internal Medicine; Internal Medicine Critical Care Medicine; Student in an Organized Health Care Education/Training Program; ADMIT Internal Medicine
PROC: B548ZZA Ultrasonography of Superior Vena Cava, Guidance (ICD-10-PCS; principal; 2019-01-23)
PROC: 0BH17EZ Insertion of Endotracheal Airway into Trachea, Via Natural or Artificial Opening (ICD-10-PCS; principal; 2019-01-23)
PROC: 02HV33Z Insertion of Infusion Device into Superior Vena Cava, Percutaneous Approach (ICD-10-PCS; principal; 2019-01-23)
PROC: 5A1945Z Respiratory Ventilation, 24-96 Consecutive Hours (ICD-10-PCS; principal; 2019-01-23)
PROC: 5A09357 Assistance with Respiratory Ventilation, Less than 24 Consecutive Hours, Continuous Positive Airway Pressure (ICD-10-PCS; principal; 2019-01-23)
PROC: 03HY32Z Insertion of Monitoring Device into Upper Artery, Percutaneous Approach (ICD-10-PCS; principal; 2019-01-23)
PROC: 5A09357 Assistance with Respiratory Ventilation, Less than 24 Consecutive Hours, Continuous Positive Airway Pressure (ICD-10-PCS; 2019-01-24)
PROC: 5A09357 Assistance with Respiratory Ventilation, Less than 24 Consecutive Hours, Continuous Positive Airway Pressure (ICD-10-PCS; 2019-01-25)
PROC: 4A02XM4 Measurement of Cardiac Total Activity, External Approach (ICD-10-PCS; 2019-01-28)
PROC: 3E073KZ Introduction of Other Diagnostic Substance into Coronary Artery, Percutaneous Approach (ICD-10-PCS; 2019-01-28)
DX: A41.9 Sepsis, unspecified organism (principal); R65.21 Severe sepsis with septic shock; J18.9 Pneumonia, unspecified organism; J96.01 Acute respiratory failure with hypoxia; I21.4 Non-ST elevation (NSTEMI) myocardial infarction; N17.0 Acute kidney failure with tubular necrosis; I50.21 Acute systolic (congestive) heart failure; J96.02 Acute respiratory failure with hypercapnia; J44.1 Chronic obstructive pulmonary disease with (acute) exacerbation; E87.1 Hypo-osmolality and hyponatremia; J44.0 Chronic obstructive pulmonary disease with (acute) lower respiratory infection; E87.2 Acidosis; I49.3 Ventricular premature depolarization; F41.1 Generalized anxiety disorder; E83.39 Other disorders of phosphorus metabolism; F17.210 Nicotine dependence, cigarettes, uncomplicated; J20.9 Acute bronchitis, unspecified; D75.89 Other specified diseases of blood and blood-forming organs; R73.9 Hyperglycemia, unspecified; E83.41 Hypermagnesemia; I11.0 Hypertensive heart disease with heart failure; T38.0X5A Adverse effect of glucocorticoids and synthetic analogues, initial encounter; Y92.89 Other specified places as the place of occurrence of the external cause; Z82.49 Family history of ischemic heart disease and other diseases of the circulatory system; Z80.8 Family history of malignant neoplasm of other organs or systems; Z79.899 Other long term (current) drug therapy

== ENCOUNTER → 2019-02-12 | Outpatient (CLI) | payer MEDICARE ==
[~2019-02-12] MED LIST changes: +ALDACTONE25 MG PO; +ASPIRIN ADULT L81 M2 PO; +ATORVASTATIN CA20 M1 PO; +DOXYCYCLINE100 M3 PO; +LISINOPRIL2.5 MG PO; +LOSARTAN-HCTZ1 EAC2 PO; +METOPROLOL SUCC50 M1 PO; +METOPROLOL TART50 M1 PO; +PREDNISONE10 MG PO; +PROAIR HFA8.5 GM INH
[2019-02-12 15:46] LABS: BUN 15 mg/dl (7-24); CHLORIDE 103 mmol/L (98-107); CREATININE 0.93 mg/dL (0.55-1.02); POTASSIUM 4.2 mmol/L (3.5-5.1); SODIUM 138 mmol/L (136-145)
== END | disposition home or self-care (01) ==
LOC: LAB 14:38
PROVIDERS: Internal Medicine
DX: I10 Essential (primary) hypertension (principal)

== ENCOUNTER 2019-05-14 14:06 | Inpatient (IN) | payer MEDICARE ==
[~2019-05-14] VITALS: Ht 170.1 cm; Wt 57.8 kg
[2019-05-14 14:07] VITALS: BP 171/81
[2019-05-14 14:46] LABS: BASO # 0.1 10*3/uL (0.0-0.1); EOS # 1.2 10*3/uL (0.0-0.4); EOS % 14.7 % (1.0-4.0); HEMATOCRIT 43.2 % (37.0-47.0); HEMOGLOBIN 14.5 g/dl (12.0-16.0); LYMPH # 1.2 10*3/uL (1.3-4.4); LYMPH % 14.8 % (27.0-41.0); MEAN CELL VOLUME 98.9 fl (81.0-99.0); MEAN CORPUSCULAR HGB 33.2 pg (27.0-31.0); MEAN CORPUSCULAR HGB CONC 33.6 g/dl (33.0-37.0); MEAN PLATELET VOLUME 10.5 fl (9.6-12.3); MONO # 0.5 10*3/uL (0.1-1.0); MONO % 5.6 % (3.0-9.0); NEUT # 5.2 10*3/uL (2.3-7.9); NEUT % 63.7 % (47.0-73.0); PLATELET COUNT AUTOMATED 233 10*3/uL (130-400); RED BLOOD COUNT 4.37 10*6/uL (4.10-5.10); RED CELL DISTRI WIDTH 12.2 % (0-14.5); WHITE BLOOD COUNT 8.2 10*3/uL (4.8-10.8)
[2019-05-14 14:56] LABS: ACT PARTIAL THROMBO TIME 26.8 SECONDS (20.0-32.1); INTERNATIONAL NORM RATIO 0.9 (2.0-3.5)
[2019-05-14 15:00] LABS: ALBUMIN 3.9 gm/dl (3.1-4.5); ALKALINE PHOSPHATASE 58 U/L (45-117); BUN 9 mg/dl (7-24); CHLORIDE 105 mmol/L (98-107); SGOT/AST 16 IU/L (3-35); SODIUM 139 mmol/L (136-145); TOTAL PROTEIN 7.5 gm/dL (6.4-8.2)
[2019-05-14 15:04] VITALS: BP 140/83
--- NOTE | 2019-05-14 15:05 | NUR ---
LACTIC ACID 2.1. DR SOSA MADE AWARE---[facility] STYLES RN
[2019-05-14 15:09] LABS: SGPT/ALT 23 U/L (12-78)
[2019-05-14 15:11] LABS: TROPONIN I < 0.015 ng/ml (<0.045)
[2019-05-14 16:01] VITALS: BP 147/83
[2019-05-14 16:28] VITALS: BP 155/91
--- NOTE | 2019-05-14 17:10 | NUR ---
A 69, admitted to , under the services of ABBY Olivo DO with a diagnosis of COPD. Chief complaint is SHORTNESS OF BREATH. Patient arrived via bed from ER. Monitor applied. Initial assessment completed. Vital signs taken and recorded. ABBY OLIVO DO notified of admission to the unit. Orders received. See assessment for past medical history, medications and allergies. Patient and/or family oriented to unit. [address] visitation policy reviewed. Clothing/patient valuable form completed. AJIT POLANCO
[2019-05-14 17:15] VITALS: BP 162/98
--- NOTE | 2019-05-14 18:01 | NUR ---
DR. JOY NOTIFIED OF CONSULT.
[2019-05-14 20:00] VITALS: BP 101/72; BP 131/72
[2019-05-15] VITALS: BP 140/71
[2019-05-15 05:50] LABS: BILIRUBIN NEGATIVE (NEGATIVE); BLOOD NEGATIVE (NEGATIVE); CLARITY CLEAR (CLEAR); COLOR YELLOW (YELLOW); GLUCOSE NEGATIVE (NEGATIVE); KETONE TRACE (NEGATIVE); LEUKO ESTERASE NEGATIVE (NEGATIVE); NITRITE NEGATIVE (NEGATIVE); PH 6.5 (5.0-9.0); SPECIFIC GRAVITY <= 1.005 (1.005-1.030); UROBILINOGEN 0.2 E.U./dl (0.2-1.0)
--- NOTE | 2019-05-15 05:58 | NUR ---
24 HR. CHART CHECK COMPLETE.
[2019-05-15 05:59] LABS: EPITHELIAL CELLS 0-5
[2019-05-15 06:00] LABS: RBC 0-2 rbc/hpf (0-2); WBC 0-2 wbc/hpf (0-5)
[2019-05-15 06:22] LABS: BASO % 0.1 % (0.0-1.0); HEMATOCRIT 41.6 % (37.0-47.0); HEMOGLOBIN 13.7 g/dl (12.0-16.0); LYMPH # 0.7 10*3/uL (1.3-4.4); LYMPH % 8.6 % (27.0-41.0); MEAN CELL VOLUME 99.5 fl (81.0-99.0); MEAN CORPUSCULAR HGB 32.8 pg (27.0-31.0); MEAN CORPUSCULAR HGB CONC 32.9 g/dl (33.0-37.0); MEAN PLATELET VOLUME 10.7 fl (9.6-12.3); MONO # 0.1 10*3/uL (0.1-1.0); MONO % 0.9 % (3.0-9.0); NEUT # 7.2 10*3/uL (2.3-7.9); PLATELET COUNT AUTOMATED 227 10*3/uL (130-400); RED BLOOD COUNT 4.18 10*6/uL (4.10-5.10)
[2019-05-15 06:50] LABS: BUN 10 mg/dl (7-24); CHLORIDE 108 mmol/L (98-107); CREATININE 0.74 mg/dL (0.55-1.02); POTASSIUM 4.3 mmol/L (3.5-5.1); SODIUM 140 mmol/L (136-145)
[2019-05-15 07:42] VITALS: BP 132/70
--- NOTE | 2019-05-15 08:42 | NUR ---
ASSESSMENT DOCUMENTATION COMPLETED. PT SITTING UP IN BED, DENIES ANY PAIN OR DISCOMFORT AT THIS TIME. WILL CONTINUE TO MONITOR. JANETTE DOW
--- NOTE | 2019-05-15 09:05 | NUR ---
Occupational therapy orders received and OT evaluation completed in full on floor four. Patient precautions include 3L02 and L UE IV line. Patient demonstrated independent ADLS, mobility, and functional transfers. Patient notified of discharge from OT and was agreeable. Per patient, she feels that she is at her baseline, and she did not have any questions about returning home. Patient complexity is low, 770[address]. Thank you for the referral. Lizbeth Vergara, OTR/L
--- NOTE | 2019-05-15 09:56 | NUR ---
NO COMPLAINTS OF DISOMFORT OR PAIN AT THIS TIME, PT RELAXING WATCHING TV. WILL CONTINUE TO MONITOR. JANETTE DOW
[2019-05-15 12:26] VITALS: BP 125/65
--- NOTE | 2019-05-15 12:26 | NUR ---
ASSESSMENT DOCUMENTION COMPLETED. ASSISSTED PT WITH WASHING UP AND CHANGED BED LINENS. PT BACK TO RELAXING AND WATCHING TV WAITING ON LUNCH. NO COMPLAINTS OF PAIN OR DISCOMFORT AT THIS TIME. WILL CONTINUE TO MONITOR. JANETTE DOW
--- NOTE | 2019-05-15 12:43 | NUR ---
Signing Agent in to talk to patient. Patient states lives at HOME with ALONE. There are FEW steps in the home. Physician: Kyara DHILLON [facility]acy: [facility] Home health services: NONE Patient's level of ADLs: INDEPENDENT Patient has working utilities: YES DME: [employer] [facility] Follow-up physician's appointment after d/c: WILL BE MADE BY HOSPITALIST NURSE DIRECTOR ON DISCHAGE Does patient want to access PORTAL?: NO Discharge plan PT LIVES AT HOME ALONE AND IS INDPENDENT IN HER CARE. DENIES SHE WILL HAVE NEEDS ON DISCHARGE. STATES SHE HAS DAUGHTERS WHO HELP HER IF SHE NEEDS IT. PT PLANS TO RETURN HOME WHEN MEDICALLY STABLE. WILL CONTINUE TO FOLLOW. STATES SHE WILL HAVE A RIDE HOME. . NIKHIL DESAI
--- NOTE | 2019-05-15 13:29 | NUR ---
PT JUST FINISHED LUNCH AND PLANNED ON TAKING A NAP. DENIES ANY PAIN. REPORT GIVEN TO SAWYER REYES. JANETTE MCKEE SPRAGHAVENDRACC
[2019-05-15 16:00] VITALS: BP 136/66
[2019-05-15 20:00] VITALS: BP 130/63
[2019-05-16] VITALS: BP 133/73
--- NOTE | 2019-05-16 07:30 | NUR ---
24 CHART CHECK COMPLETE.
[2019-05-16 08:00] VITALS: BP 162/92
--- NOTE | 2019-05-16 08:30 | NUR ---
PATIENT RESTING QUIETLY IN BED. 02 IN USE. LUNGS DIMINISHED WITH I/E WHEEZES. PRODUCTIVE COUGH AT TIMES PER PT. SPUTUM CONTAINER AT BEDSIDE. WILL CONTINUE TO MONITOR. VSS. SEE SHIFT ASSESSMENT.
[2019-05-16 12:00] VITALS: BP 159/80
--- NOTE | 2019-05-16 14:22 | NUR ---
PT STATES SHE WILL RETURN HOME AFTER DISCHARGE WITH NO NEW NEEDS. WILL CONTINUE TO FOLLOW.
--- NOTE | 2019-05-16 14:35 | NUR ---
PHYSICAL THERAPY Ramona completed pt low complexity level 50814 recomend home with family assist HH. PT to work on amb, stairs, strengthening and edurance training. Jenni Garcia PT
[2019-05-16 16:00] VITALS: BP 158/61
[2019-05-16 20:00] VITALS: BP 137/75
--- NOTE | 2019-05-16 20:25 | NUR ---
24 HR chart check completed.
--- NOTE | 2019-05-16 21:00 | NUR ---
RESTING IN BED WITH NO DISTRESS NOTED. RESPIRATIONS EASY. LUNGS DIMINISHED WITH I&E WHEEZES. PULSE OX 96% 2L. PROD COUGH, SPUTUM OBTAINED AND SENT FOR SAMPLE. IV FLUIDS INFUSING PER ORDER. CALL LIGHT WITHIN REACH. NO VOICED COMPLAINTS
[2019-05-17] VITALS: BP 151/81
--- NOTE | 2019-05-17 | NUR ---
SLEEPING. NO DISTRESS NOTED. RESPIRATIONS EASY. VSS. IV FLUIDS INFUSING PER ORDER. CALL LIGHT WITHIN REACH
[2019-05-17] MEDS ORDERED: METOPROLOL TART50 M1 PO (02:08)
--- NOTE | 2019-05-17 06:00 | NUR ---
SLEPT THROUGHOUT NIGHT WITH NO DISTRESS NOTED. RESPIRATIONS EASY. IV FLUIDS MAINTAINED. CALL LIGHT WITHIN REACH. NO VOICED COMPLAINTS THIS SHIFT
[2019-05-17 06:44] LABS: HEMATOCRIT 37.7 % (37.0-47.0); HEMOGLOBIN 12.1 g/dl (12.0-16.0); MEAN CELL VOLUME 100.8 fl (81.0-99.0); MEAN CORPUSCULAR HGB 32.4 pg (27.0-31.0); MEAN CORPUSCULAR HGB CONC 32.1 g/dl (33.0-37.0); MEAN PLATELET VOLUME 10.5 fl (9.6-12.3); PLATELET COUNT AUTOMATED 191 10*3/uL (130-400); RED BLOOD COUNT 3.74 10*6/uL (4.10-5.10); RED CELL DISTRI WIDTH 12.2 % (0-14.5); WHITE BLOOD COUNT 8.4 10*3/uL (4.8-10.8)
[2019-05-17 07:16] LABS: BUN 9 mg/dl (7-24); CHLORIDE 113 mmol/L (98-107); CREATININE 0.72 mg/dL (0.55-1.02); POTASSIUM 4.2 mmol/L (3.5-5.1); SODIUM 146 mmol/L (136-145)
[2019-05-17 07:29] LABS: TOTAL CELLS COUNTED 100 #CELLS
[2019-05-17 07:30] LABS: PLATELET SUFFICIENCY NORMAL (NORMAL)
[2019-05-17 07:38] VITALS: BP 140/82
--- NOTE | 2019-05-17 07:51 | NUR ---
ASSESSMENT COMPLETED AND DOCUMENTED. PT PLEASANT AND COOPERATIVE. NO C/O PAIN AT THIS TIME. WILL CONTINUE TO MONITOR. SAMANTHA DOW
--- NOTE | 2019-05-17 09:00 | NUR ---
PHYSICAL THERAPY Patient seen this am 1;1 for therapy visit and was supine in bed upon therapist arrival. Patient identified by name / and presented with continuos O2-2L via NC. Patient recorded pre treatment SpO2 93%, HR 98 bpm and transfers supine to sit, then sit to stand CGA x 1. Patient ambulates 30'x 1, SBA, to stairwell and safely navigated up / down 3 steps with single handrail support, CGA. Patient ambulated additional 150'x 1, ad samy in hallway, SBA, demonstrating steady pavan with no LOB. Patient returned to EOB sit and remained as nurse arrived to start IV treatment. Patient SpO2 following gait 91%, HR 103 bpm as patient remained EOB sit with call light, tray table and telephone. Will continue per POC as tolerated, total treatment time 18 minutes. Josh Lowery, P[employer]CELAIN ENAMEL INSTALLER
[2019-05-17] MEDS ORDERED: AZITHROMYCIN500 M2 PO (09:51)
[2019-05-17] MEDS ORDERED: LISINOPRIL10 M1 PO (09:51)
[2019-05-17] MEDS ORDERED: PREDNISONE10 MG PO (09:52)
--- NOTE | 2019-05-17 10:03 | NUR ---
ASSESSMENT AND DOCUMANTAION COMPLETED. PT UP GETTING CLEANED UP. NO COMPLAINTS OF PAIN OR DISOCMFORT AT THIS TIME. WILL CONTINUE TO MONITOR. SAMANTHA DOW
--- NOTE | 2019-05-17 11:06 | NUR ---
MSDIS Discharge instructions reviewed with patient/family. Patient receptive and verbalizes understanding. Follow-up care arranged. Written instructions given to patient/family. NINOSKA FUNG
--- NOTE | 2019-05-17 14:46 | NUR ---
PHYSICAL THERAPY CO-SIGN I approve of the Physical Therapy notes written above. Jenni Garcia PT
== END 2019-05-17 11:06 | disposition home or self-care (01) | DRG 871 ==
LOC: ED 14:06 → 4E 15:18 → EDHOLD 15:18 → 4E 16:03
PROVIDERS: Emergency Medicine; Family Medicine; ADMIT Internal Medicine
DX: A41.9 Sepsis, unspecified organism (principal); J18.9 Pneumonia, unspecified organism; J96.21 Acute and chronic respiratory failure with hypoxia; J44.1 Chronic obstructive pulmonary disease with (acute) exacerbation; I50.20 Unspecified systolic (congestive) heart failure; J44.0 Chronic obstructive pulmonary disease with (acute) lower respiratory infection; E87.0 Hyperosmolality and hypernatremia; D72.1 Eosinophilia; E78.00 Pure hypercholesterolemia, unspecified; R65.20 Severe sepsis without septic shock; F17.210 Nicotine dependence, cigarettes, uncomplicated; J20.9 Acute bronchitis, unspecified; E87.8 Other disorders of electrolyte and fluid balance, not elsewhere classified; I11.0 Hypertensive heart disease with heart failure; Z82.49 Family history of ischemic heart disease and other diseases of the circulatory system; Z80.8 Family history of malignant neoplasm of other organs or systems; Z90.49 Acquired absence of other specified parts of digestive tract; Z98.51 Tubal ligation status; Z79.82 Long term (current) use of aspirin; Z79.899 Other long term (current) drug therapy; Z83.3 Family history of diabetes mellitus

== ENCOUNTER 2019-06-15 11:47 | Inpatient (IN) | payer MEDICARE ==
[~2019-06-15] VITALS: Ht 170.2 cm; Wt 59.9 kg
[2019-06-15] VITALS (19 sets, daily range): BP systolic 85–197; BP diastolic 50–120
[~2019-06-15 11:47] MED LIST changes: +AZITHROMYCIN500 M2 PO; +LISINOPRIL10 M1 PO
--- NOTE | 2019-06-15 12:05 | NUR ---
PT ARRIVED AT 1140 BUT DIDNT HAVE NAME TO REGISTER HER PULSE OX WAS 81% 15L ORIGINALLY HAD HER ON NON REBREATHER MASK BUT UPON ARRIVAL EMS HAD HER ON BAG MASK PULSE OX WAS 81% HR-111 RESPIRATORY WAS ALREADY PAGED TO ROOM 1144 PULSE OX WAS 91% HR 107 SHE HAD 20 GAUGE TO RIGHT WRIST ESTABLISHED BY EMS AND ANOTHER 22 TO LEFT ARM STARTED UPON ARRIVAL. 1145 PULSE OX 95 HR 108 ETOMIDATE 10 MG GIVEN AT THIS TIME 1146 100MG SUCCINYCHOLINE GIVEN 1147 PT WAS INTUBATED 7.5 23 AT THE LIP.
--- NOTE | 2019-06-15 12:15 | NUR ---
PT WAS STRUGGLING WITH THE VENT TRYING TO BRING HER HANDS UP AND SAT UP IN BED NOTIFIED
[2019-06-15 12:18] LABS: BASO # 0.1 10*3/uL (0.0-0.1); BASO % 0.9 % (0.0-1.0); EOS % 9.7 % (1.0-4.0); HEMATOCRIT 44.9 % (37.0-47.0); HEMOGLOBIN 14.4 g/dl (12.0-16.0); LYMPH # 4.1 10*3/uL (1.3-4.4); LYMPH % 41.2 % (27.0-41.0); MEAN CELL VOLUME 102.3 fl (81.0-99.0); MEAN CORPUSCULAR HGB 32.8 pg (27.0-31.0); MEAN CORPUSCULAR HGB CONC 32.1 g/dl (33.0-37.0); MEAN PLATELET VOLUME 10.6 fl (9.6-12.3); MONO # 0.8 10*3/uL (0.1-1.0); MONO % 7.7 % (3.0-9.0); NEUT % 40.3 % (47.0-73.0); PLATELET COUNT AUTOMATED 323 10*3/uL (130-400); RED BLOOD COUNT 4.39 10*6/uL (4.10-5.10); RED CELL DISTRI WIDTH 12.2 % (0-14.5); WHITE BLOOD COUNT 9.9 10*3/uL (4.8-10.8)
[2019-06-15 12:34] LABS: ABG BASE EXCESS -2.3 mmol/L (-2.0-2.0); ARTERIAL BLOOD GAS PH 7.238 (7.35-7.45)
--- NOTE | 2019-06-15 12:35 | NUR ---
PT CALMED DOWN AFTER VERSED WAS GIVEN PROPOFOL WAS BUMPED UP TO 10 SHE IS RESTING IN BED NO DISTRESS NOTED
--- NOTE | 2019-06-15 13:00 | NUR ---
PT TAKEN TO CT AT THIS TIME WITH RESP AND MYSELF
[2019-06-15 13:04] LABS: ACT PARTIAL THROMBO TIME 32.9 SECONDS (20.0-32.1); INTERNATIONAL NORM RATIO 1.3 (2.0-3.5)
[2019-06-15 13:09] LABS: ALBUMIN 1.7 gm/dl (3.1-4.5); ALKALINE PHOSPHATASE 25 U/L (45-117); BUN 7 mg/dl (7-24); SGOT/AST 15 IU/L (3-35); SGPT/ALT 16 U/L (12-78); SODIUM 152 mmol/L (136-145); TOTAL PROTEIN 3.2 gm/dL (6.4-8.2)
[2019-06-15 13:14] LABS: TROPONIN I < 0.015 ng/ml (<0.045)
--- NOTE | 2019-06-15 13:16 | NUR ---
K+ 2.2 CHLORINDE 130 CA+ <5 DR YATES NOTIFIED
[2019-06-15 13:33] LABS: ACETAMINOPHEN (TYLENOL) 9.7 ug/ml (10-30); LIPASE 69 U/L (73-393)
[2019-06-15 13:34] LABS: ETHYL ALCOHOL < 3.0 mg/dl (<3)
[2019-06-15 13:37] LABS: THYROID STIM HORMONE (HS) 0.972 uIU/ml (0.358-4.75)
[2019-06-15 13:40] LABS: BILIRUBIN NEGATIVE (NEGATIVE); BLOOD 2+ (NEGATIVE); CLARITY CLOUDY (CLEAR); COLOR YELLOW (YELLOW); GLUCOSE NEGATIVE (NEGATIVE); KETONE NEGATIVE (NEGATIVE); LEUKO ESTERASE NEGATIVE (NEGATIVE); NITRITE NEGATIVE (NEGATIVE); PH 5.5 (5.0-9.0); SPECIFIC GRAVITY >= 1.030 (1.005-1.030); UROBILINOGEN 0.2 E.U./dl (0.2-1.0)
[2019-06-15 13:49] LABS: BACTERIA 3+; EPITHELIAL CELLS TNTC
[2019-06-15 13:56] LABS: URINE AMPHETAMINES < 1000 (1000ng/ml); URINE BARBITURATES < 200 (200ng/ml); URINE BENZODIAZEPINES > 200 (200ng/ml); URINE CANNABINOIDS (THC) < 50 (50ng/ml); URINE COCAINE < 300 (300ng/ml); URINE METHADONE < 300 (300ng/ml); URINE OPIATES < 300 (300ng/ml)
[2019-06-15 13:57] LABS: URINE PHENCYCLIDINE < 25 (25ng/ml)
--- NOTE | 2019-06-15 14:31 | NUR ---
PHARMACY CALLED ABOUT MAGNESIUM THEY ARE TUBING ONE DOWN
--- NOTE | 2019-06-15 14:50 | NUR ---
PT IS BEING ADMITTED TO UNIT BUT THEY HAVE TO CLEAN THE ROOM AND THEY WILL CALL WHEN THEY ARE READY FOR PT
--- NOTE | 2019-06-15 15:30 | NUR ---
WAITING ON VERIFICATION OF IV TO RIGHT JUGULAR VEIN
--- NOTE | 2019-06-15 15:34 | NUR ---
SHIRT WAS CUT OFF PANTS SOCKS AND SHOES BAGGED UP TAKEN TO [facility] WITH PT
--- NOTE | 2019-06-15 15:35 | NUR ---
WAITING ON RESPIRATORY TO TAKE PT TO FLOOR
--- NOTE | 2019-06-15 15:36 | NUR ---
DR DID NOT WRITE ORDER TO DISCONTINUE RESTRAINS IN ED PT WAS PLACED IN SOFT WRIST RESTRAINS AT TIME OF INTUBATION.
--- NOTE | 2019-06-15 15:50 | NUR ---
A 69, admitted to [facility]U, under the services of PATRICK Wilson DO with a diagnosis of . Chief complaint is SHORTNESS OF BREATH. Patient arrived via ambulance from ER. Monitor applied. Initial assessment completed. Vital signs taken and recorded. PATRICK WILSON DO notified of admission to the unit. Orders received. See assessment for past medical history, medications and allergies. Patient and/or family oriented to unit. [facility] visitation policy reviewed. Clothing/patient valuable form completed. SHARONDA WHITMORE
--- NOTE | 2019-06-15 15:54 | NUR ---
PTS DAUGHT IS SHARONDA PITTS HER NURMBER IS [phone] M HAIM WAS GIVEN NUMBER IN [facility]U AND IF THEY NEED ANYTHING TO CALL
--- NOTE | 2019-06-15 16:00 | NUR ---
ANTIOTIOTICS AND MAG GIVEN TO FLOOR NURSE IN [facility]
--- NOTE | 2019-06-15 16:04 | NUR ---
PHARMACY NOTIFIED RSI KIT IS IN MED ROOM
[2019-06-15 16:21] LABS: ABG BASE EXCESS -0.7 mmol/L (-2.0-2.0); ARTERIAL BLOOD GAS PH 7.351 (7.35-7.45)
--- NOTE | 2019-06-15 17:00 | NUR ---
DR. JOY NOTIFIED OF CONSULT
[2019-06-15 18:58] LABS: ALBUMIN 3.6 gm/dl (3.1-4.5); ALKALINE PHOSPHATASE 55 U/L (45-117); BUN 14 mg/dl (7-24); CREATININE 0.89 mg/dL (0.55-1.02); SGOT/AST 28 IU/L (3-35); SGPT/ALT 35 U/L (12-78); TOTAL PROTEIN 6.3 gm/dL (6.4-8.2)
[2019-06-15 19:13] LABS: CHLORIDE 106 mmol/L (98-107)
--- NOTE | 2019-06-15 19:14 | NUR ---
DR. WILLIS CALLED IN AND UPDATED ON PATIENT'S CONDITION
[2019-06-15 19:16] LABS: SODIUM 140 mmol/L (136-145)
[2019-06-15 20:36] LABS: ALBUMIN 3.4 gm/dl (3.1-4.5); ALKALINE PHOSPHATASE 52 U/L (45-117); BUN 13 mg/dl (7-24); CHLORIDE 108 mmol/L (98-107); CREATININE 0.96 mg/dL (0.55-1.02); POTASSIUM 4.6 mmol/L (3.5-5.1); SGOT/AST 29 IU/L (3-35); SGPT/ALT 35 U/L (12-78); SODIUM 141 mmol/L (136-145); TOTAL PROTEIN 6.2 gm/dL (6.4-8.2)
--- NOTE | 2019-06-15 20:56 | NUR ---
CALLED DOCTOR WILLIS WITH PATIENTS LABS ORDERS TO NOT GIVE ANY MORE POTASSIUM IV OR PO AND TO STOP D5W AND START NS@60.
[2019-06-16] VITALS (7 sets, daily range): BP systolic 97–117; BP diastolic 49–66
--- NOTE | 2019-06-16 04:02 | NUR ---
PATIENT GIVEN VERSED TO HELP CALM AND SEDATE PATIENT.
[2019-06-16 05:24] LABS: ALBUMIN 3.3 gm/dl (3.1-4.5); ALKALINE PHOSPHATASE 52 U/L (45-117); BUN 16 mg/dl (7-24); CHLORIDE 107 mmol/L (98-107); CREATININE 1.05 mg/dL (0.55-1.02); PHOSPHOROUS 1.9 mg/dL (2.5-4.9); POTASSIUM 3.9 mmol/L (3.5-5.1); SGOT/AST 17 IU/L (3-35); SGPT/ALT 28 U/L (12-78); SODIUM 139 mmol/L (136-145); TOTAL PROTEIN 6.2 gm/dL (6.4-8.2)
[2019-06-16 06:24] LABS: CHLORIDE 130 mmol/L (98-107); POTASSIUM 2.2 mmol/L (3.5-5.1)
[2019-06-16 06:37] LABS: HEMATOCRIT 37.5 % (37.0-47.0); HEMOGLOBIN 12.1 g/dl (12.0-16.0); MEAN CELL VOLUME 100.8 fl (81.0-99.0); MEAN CORPUSCULAR HGB 32.5 pg (27.0-31.0); MEAN CORPUSCULAR HGB CONC 32.3 g/dl (33.0-37.0); MEAN PLATELET VOLUME 10.8 fl (9.6-12.3); RED BLOOD COUNT 3.72 10*6/uL (4.10-5.10); RED CELL DISTRI WIDTH 12.4 % (0-14.5); WHITE BLOOD COUNT 8.1 10*3/uL (4.8-10.8)
[2019-06-16 06:43] LABS: PLATELET COUNT AUTOMATED 214 10*3/uL (130-400)
[2019-06-16 07:04] LABS: PLATELET SUFFICIENCY NORMAL (NORMAL); TOTAL CELLS COUNTED 100 #CELLS
[2019-06-16 07:25] LABS: ARTERIAL BLOOD GAS PH 7.402 (7.35-7.45)
--- NOTE | 2019-06-16 08:15 | NUR ---
TURNED AND REPOSITIONED ONTO RIGHT SIDE. SEDATED ON DIPRIVAN GTT AT 40MIC'S. NS INFUSING AT 60CC/HR. PULMOCARE INFUISNG AT 20CC/HR VIA OGT. NO EDEMA NOTED. PALE IN COLOR. LUNGS CLEAR BILATERALLY.
[2019-06-16] MEDS ORDERED: METOPROLOL TART50 M1 PO (10:03)
[2019-06-16] MEDS ORDERED: ALDACTONE25 M1 PO (10:03)
[2019-06-16 13:28] LABS: ABG BASE EXCESS -0.2 mmol/L (-2.0-2.0); ARTERIAL BLOOD GAS PH 7.374 (7.35-7.45)
--- NOTE | 2019-06-16 13:43 | NUR ---
DR. JOY CALLED WITH ABG RESULTS, FIO2 DECREASED TO 30%. RN NOTIFIED.
[2019-06-17] VITALS (8 sets, daily range): BP systolic 112–155; BP diastolic 56–73
[2019-06-17 05:34] LABS: ALBUMIN 3.4 gm/dl (3.1-4.5); ALKALINE PHOSPHATASE 48 U/L (45-117); BUN 16 mg/dl (7-24); CHLORIDE 110 mmol/L (98-107); CREATININE 0.89 mg/dL (0.55-1.02); PHOSPHOROUS 3.2 mg/dL (2.5-4.9); POTASSIUM 4.3 mmol/L (3.5-5.1); SGOT/AST 11 IU/L (3-35); SGPT/ALT 26 U/L (12-78); SODIUM 145 mmol/L (136-145); TOTAL PROTEIN 6.2 gm/dL (6.4-8.2)
[2019-06-17 06:14] LABS: HEMATOCRIT 38.1 % (37.0-47.0); MEAN CELL VOLUME 102.4 fl (81.0-99.0); MEAN CORPUSCULAR HGB 32.3 pg (27.0-31.0); MEAN CORPUSCULAR HGB CONC 31.5 g/dl (33.0-37.0); MEAN PLATELET VOLUME 10.8 fl (9.6-12.3); PLATELET COUNT AUTOMATED 232 10*3/uL (130-400); RED BLOOD COUNT 3.72 10*6/uL (4.10-5.10); RED CELL DISTRI WIDTH 13.1 % (0-14.5); WHITE BLOOD COUNT 13.9 10*3/uL (4.8-10.8)
[2019-06-17 07:06] LABS: ABG BASE EXCESS 3.2 mmol/L (-2.0-2.0); ARTERIAL BLOOD GAS PH 7.415 (7.35-7.45)
[2019-06-17 07:17] LABS: PLATELET SUFFICIENCY NORMAL (NORMAL); TOTAL CELLS COUNTED 100 #CELLS
--- NOTE | 2019-06-17 08:00 | NUR ---
PT REMAINS INTUBATED AND SEDATED. VSS. POX 100% ON 30% FIO2. LUNG HO CLEAR. PT SUCTIONED FOR SCANT AMOUNT OF WHITE MUCUS. OGT PLACEMENT VERIFIED WITH AN AIR BOLUS. 40CC RESIDUAL NOTED. TUBE FEEDINGS INFUSING AT 20CC/HR. ABD. SOFT WITH ACTIVE BOWEL SOUNDS. KAUR PATENT FOR CLEAR YELLOW URINE. NO PERIPHERAL EDEMA NOTED. PT TURNED AND REPOSITIONED FOR COMFORT AND PRESSURE ULCER PREVENTION. WILL CONTINUE TO MONITOR PT.
--- NOTE | 2019-06-17 09:14 | NUR ---
CPAP TRIAL STARTED PER DR.S HUFF.
--- NOTE | 2019-06-17 09:15 | NUR ---
PT AWAKE AND ALERT. PT ABLE TO FOLLOW SIMPLE COMMANDS. PT PLACED TO CPAP PER ORDER AFTER PT EDUCATED ON CPAP TRIAL.
--- NOTE | 2019-06-17 09:30 | NUR ---
DR YATES IN TO SEE PT. DR YATES UPDATED PT AND PT'S FAMILY ON PLAN OF CARE.
--- NOTE | 2019-06-17 11:00 | NUR ---
Tuft Machine Operator in to see patient. She is currently intubated. Will follow up at a later time. Dr. Javier following.
[2019-06-17 11:32] LABS: ABG BASE EXCESS 4.2 mmol/L (-2.0-2.0); ARTERIAL BLOOD GAS PH 7.546 (7.35-7.45)
--- NOTE | 2019-06-17 12:05 | NUR ---
DR JOY NOTIFIED OF RESULTS OF ABG DRAWN EARLIER BY RESP. THERAPY. ORDER RECEIVED TO EXTUBATE PT. RESP. THERAPIST NOTIFIED. PT AND PT'S FAMILY UPDATED.
--- NOTE | 2019-06-17 12:15 | NUR ---
PER DRS ORDER PT EXTUBATED TO 2L NC. TOLERATED WELL. RESPIRATIONS UNLABORED NO STRIDOR.
--- NOTE | 2019-06-17 12:15 | NUR ---
Patient extubated on physician's order. Nasal Cannula 2L. Pulse oximeter on with alarms set at 10% below patient's baseline. Pharyngeal reflex present prior to extubation. Patient encouraged to cough and deep breathe. Patient observed for skin color and temperature, monitor rhythm, respiratory rate and effort, and level of consciousness. NPO for 4 hours. Patient tolerated procedure WELL. MONAE OWUSU
--- NOTE | 2019-06-17 15:42 | NUR ---
PT RESTING. POX 94% ON 2L NC. NO ACUTE DISTRESS NOTED. PT DENIES COMPLAINTS.
--- NOTE | 2019-06-17 17:05 | NUR ---
PT'S FAMILY IN TO VISIT. UPDATED THEM ON PT'S CONDITION AND PLAN OF CARE.
--- NOTE | 2019-06-17 20:00 | NUR ---
PT SITTING UP IN BED EATING. NO ACUTE DISTRESS NOTED. NO COMPLAINTS VOICED. RESP NONLABORED. RIGHT IJ MLC PATENT AND RIGHT HAND HEPLOCK PATENT. PT DENIES ANY PAIN OR DISCOMFORT.
[2019-06-18 04:00] VITALS: BP 133/72
[2019-06-18 04:55] LABS: BASO % 0.1 % (0.0-1.0); EOS % 0.1 % (1.0-4.0); HEMATOCRIT 32.7 % (37.0-47.0); HEMOGLOBIN 10.6 g/dl (12.0-16.0); LYMPH # 0.7 10*3/uL (1.3-4.4); LYMPH % 6.9 % (27.0-41.0); MEAN CELL VOLUME 101.9 fl (81.0-99.0); MEAN CORPUSCULAR HGB CONC 32.4 g/dl (33.0-37.0); MEAN PLATELET VOLUME 10.7 fl (9.6-12.3); MONO # 0.2 10*3/uL (0.1-1.0); MONO % 2.2 % (3.0-9.0); NEUT # 9.1 10*3/uL (2.3-7.9); NEUT % 89.4 % (47.0-73.0); PLATELET COUNT AUTOMATED 204 10*3/uL (130-400); RED BLOOD COUNT 3.21 10*6/uL (4.10-5.10); RED CELL DISTRI WIDTH 13.2 % (0-14.5); WHITE BLOOD COUNT 10.2 10*3/uL (4.8-10.8)
[2019-06-18 05:09] LABS: ALBUMIN 3.2 gm/dl (3.1-4.5); ALKALINE PHOSPHATASE 44 U/L (45-117); BUN 21 mg/dl (7-24); CHLORIDE 109 mmol/L (98-107); CREATININE 0.76 mg/dL (0.55-1.02); PHOSPHOROUS 3.5 mg/dL (2.5-4.9); POTASSIUM 4.3 mmol/L (3.5-5.1); SGOT/AST 11 IU/L (3-35); SGPT/ALT 23 U/L (12-78); SODIUM 141 mmol/L (136-145); TOTAL PROTEIN 5.8 gm/dL (6.4-8.2)
--- NOTE | 2019-06-18 07:29 | NUR ---
Shift chart check completed.
[2019-06-18 07:45] VITALS: BP 134/70
[2019-06-18 08:00] VITALS: BP 136/68
--- NOTE | 2019-06-18 10:30 | NUR ---
Civil Laboratory Technician in to talk to patient. Patient states lives at home alone with her family checking in on her. There are 12 steps in the home. Physician: Dr. Terry Maurer [facility]: [facility] Home health services: none Patient's level of ADLs: INDEPENDENT Patient has working utilities: yes DME: O2 @ 2L nc, portable O2 tanks, nebulizer, O2 supplier [employer] Follow-up physician's appointment after d/c: will be made by the hospitalist nurse director upon discharge Does patient want to access PORTAL?: no Discharge plan discussed with patient. She lives at home alone with her family checking in on her. She is independent in her ADLs and ambulation. Discussed home health care services and she denies any home needs at this time. When medically stable she will be discharged to home. She states her daughter will provide transportation on discharge. MIKE LEYVA
[2019-06-18 11:43] LABS: ABG BASE EXCESS 4.1 mmol/L (-2.0-2.0); ARTERIAL BLOOD GAS PH 7.435 (7.35-7.45)
[2019-06-18 12:00] VITALS: BP 99/56
[2019-06-18 12:04] LABS: CREATININE,URINE 46.5 mg/dL (Not Estab.)
--- NOTE | 2019-06-18 12:07 | NUR ---
PT NOT ON BIPAP AT THIS TIME
--- NOTE | 2019-06-18 13:01 | NUR ---
DR YATES HERE AND ROUNDED
[2019-06-18 16:00] VITALS: BP 133/67
--- NOTE | 2019-06-18 16:11 | NUR ---
RESTING IN BED AFTER UP IN CHAIR FOR PROLONGED PERIOD OF TIME TODAY - GAIT STEADY & STRENGTH IMPROVING. NC2L AT ALL TIMES CURRENTLY
[2019-06-18 20:00] VITALS: BP 115/61
--- NOTE | 2019-06-18 20:02 | NUR ---
PT SITTING UPRIGHT IN BED...READING. NO COMPLAINTS OFFERED OR DISTRESS NOTED.
[2019-06-19] VITALS: BP 114/60
--- NOTE | 2019-06-19 04:04 | NUR ---
PT AWAKENED TO TRANSFER TO [facility]. ALL BELONGINGS PACKED.
--- NOTE | 2019-06-19 04:08 | NUR ---
REPORT GIVEN TO NURSE FOR [id number].
--- NOTE | 2019-06-19 04:13 | NUR ---
PT WITH TELE MONITOR PLACED AND TRANSFERRED TO [facility] VIA WHEELCHAIR.
[2019-06-19 06:29] LABS: BASO % 0.3 % (0.0-1.0); EOS # 0.1 10*3/uL (0.0-0.4); EOS % 0.9 % (1.0-4.0); HEMATOCRIT 37.6 % (37.0-47.0); HEMOGLOBIN 11.8 g/dl (12.0-16.0); LYMPH # 2.3 10*3/uL (1.3-4.4); MEAN CELL VOLUME 101.3 fl (81.0-99.0); MEAN CORPUSCULAR HGB 31.8 pg (27.0-31.0); MEAN CORPUSCULAR HGB CONC 31.4 g/dl (33.0-37.0); MEAN PLATELET VOLUME 10.1 fl (9.6-12.3); MONO # 0.5 10*3/uL (0.1-1.0); MONO % 6.9 % (3.0-9.0); NEUT # 4.9 10*3/uL (2.3-7.9); NEUT % 61.9 % (47.0-73.0); PLATELET COUNT AUTOMATED 213 10*3/uL (130-400); RED BLOOD COUNT 3.71 10*6/uL (4.10-5.10); RED CELL DISTRI WIDTH 12.9 % (0-14.5); WHITE BLOOD COUNT 7.9 10*3/uL (4.8-10.8)
[2019-06-19 06:57] LABS: BUN 16 mg/dl (7-24); CHLORIDE 106 mmol/L (98-107); POTASSIUM 3.8 mmol/L (3.5-5.1); SODIUM 141 mmol/L (136-145)
[2019-06-19 08:00] VITALS: BP 154/80
--- NOTE | 2019-06-19 10:30 | NUR ---
Trolley Car Mechanic in to see patient. No new needs or request at this time. She continues to deny any home needs. When medically stable she will be discharged to home.
[2019-06-19 12:00] VITALS: BP 129/68
--- NOTE | 2019-06-19 12:13 | NUR ---
PULSE OX ON 2L AT REST 92-93%. O2 REMOVED AND O2 WAS RECHECKED IN 15 MINUTES. PULSE OX ON R/A AT REST 88%. O2 PLACED ON PT AT 2L, PULSE OX INCREASING 91%. PT. AMBULATED IN THE CHAVEZ ON 2L, PT. PULSE OX WAS 89 TO 90% ON 2L WITH AMBULATION. PT. RETURNED TO ROOM, RESTING IN BED WITH O2 AT 2L. RECOVERY PULSE OX ON 2L WAS 94% AND HEART RATE 88. B/P BEFORE AMBULATION WAS 115/63 AND AFTER 134/77. RN NOTIFIED. [facility] CALLED FOR O2 ORDER. [facility] WILL BE CALLED FOR O2 SERVICE.
--- NOTE | 2019-06-19 13:00 | NUR ---
REMOVED RIJ, AND TELEMETRY ORDERRED. PT IS NOW MED SURG. RESPIRATORY THERAPY ASSESSED FOR HOME O2, STATES SHE WILL NEED 2 LO2 AT HOME.
--- NOTE | 2019-06-19 14:23 | NUR ---
PT. INSTRUCTED ON I/S. PT. INSTRUCTED ON I/S AND TO TAKE HOME UPON DISCHARGE.
[2019-06-19 16:00] VITALS: BP 134/84
[2019-06-19 20:00] VITALS: BP 135/63
[2019-06-20] VITALS: BP 141/72
--- NOTE | 2019-06-20 07:30 | NUR ---
TOOK OVER CARE OF PT. PT SITTING UP IN BED. ALERT ORIENTED AND PLEASANT MOOD WITH NO COMPLAINTS VOICED. PT DENIES SHORTNESS OF BREATH AND CHEST PAIN. 3L NASAL CANNULA IN TACT. RESPIRATIONS UNLABORED. ALL SAFETY MEASURES IN PLACE. CALL LIGHT IN REACH.
[2019-06-20 08:00] VITALS: BP 130/68
[2019-06-20] MEDS ORDERED: Ipratropium Brom3 ML INH (10:42)
[2019-06-20] MEDS ORDERED: PREDNISONE10 MG PO (10:42)
[2019-06-20] MEDS ORDERED: METOPROLOL TART50 M1 PO (10:42)
--- NOTE | 2019-06-20 11:50 | NUR ---
Discharge instructions reviewed with patient/family. Patient receptive and verbalizes understanding. Follow-up care arranged. Written instructions given to patient/family. ELIZABETH MORALES
[2019-06-20 12:00] VITALS: BP 119/54
== END 2019-06-20 11:50 | disposition home or self-care (01) | DRG 917 ==
LOC: ED 11:47 → EDHOLD 14:09 → ICCU 14:09 → EDHOLD 14:14 → ICCU 14:29 → 4E 06-19 03:55 → 5E 06-19 17:41
PROVIDERS: Internal Medicine; Internal Medicine Critical Care Medicine; Internal Medicine Nephrology; Student in an Organized Health Care Education/Training Program; ADMIT Internal Medicine
DX: T42.4X4A Poisoning by benzodiazepines, undetermined, initial encounter (principal); J96.02 Acute respiratory failure with hypercapnia; J18.9 Pneumonia, unspecified organism; J96.01 Acute respiratory failure with hypoxia; J44.1 Chronic obstructive pulmonary disease with (acute) exacerbation; E87.0 Hyperosmolality and hypernatremia; I50.20 Unspecified systolic (congestive) heart failure; E87.2 Acidosis; N17.9 Acute kidney failure, unspecified; J44.0 Chronic obstructive pulmonary disease with (acute) lower respiratory infection; J82 Pulmonary eosinophilia, not elsewhere classified; E83.51 Hypocalcemia; E83.39 Other disorders of phosphorus metabolism; E83.42 Hypomagnesemia; R73.9 Hyperglycemia, unspecified; E87.8 Other disorders of electrolyte and fluid balance, not elsewhere classified; I11.0 Hypertensive heart disease with heart failure; E78.5 Hyperlipidemia, unspecified; J20.9 Acute bronchitis, unspecified; F41.1 Generalized anxiety disorder; Z83.3 Family history of diabetes mellitus; Z99.81 Dependence on supplemental oxygen; Z82.49 Family history of ischemic heart disease and other diseases of the circulatory system; I25.2 Old myocardial infarction; Z80.9 Family history of malignant neoplasm, unspecified; Z79.899 Other long term (current) drug therapy; Z79.82 Long term (current) use of aspirin; Z98.51 Tubal ligation status

== ENCOUNTER → 2019-11-26 | Outpatient (CLI) | payer MEDICARE ==
[~2019-11-26] MED LIST changes: +ALDACTONE25 M1 PO; +Ipratropium Brom3 ML INH
== END | disposition home or self-care (01) ==
LOC: MAMMO 12:52 → RAD 14:00
DX: Z12.31 Encounter for screening mammogram for malignant neoplasm of breast (principal); M81.0 Age-related osteoporosis without current pathological fracture

== ENCOUNTER → 2019-12-06 | Outpatient (CLI) | payer MEDICARE | END | disposition home or self-care (01) | LOC: RAD 13:32 | DX: M81.0 Age-related osteoporosis without current pathological fracture (principal); Z12.39 Encounter for other screening for malignant neoplasm of breast; Z78.0 Asymptomatic menopausal state ==

== ENCOUNTER → 2020-12-01 | Outpatient (CLI) | payer MEDICARE | END | disposition home or self-care (01) | LOC: MAMMO 15:14 | PROVIDERS: ATTEND Physician Assistant | DX: Z12.31 Encounter for screening mammogram for malignant neoplasm of breast (principal) ==

== ENCOUNTER → 2022-01-18 | Outpatient (CLI) | payer MEDICARE | END | disposition home or self-care (01) | LOC: MAMMO 14:00 | PROVIDERS: ATTEND Physician Assistant | DX: Z12.31 Encounter for screening mammogram for malignant neoplasm of breast (principal) ==

== ENCOUNTER → 2023-01-19 | Outpatient (CLI) | payer MEDICARE | END | disposition home or self-care (01) | LOC: MAMMO 14:20 | PROVIDERS: ATTEND Physician Assistant | DX: Z12.31 Encounter for screening mammogram for malignant neoplasm of breast (principal); N64.9 Disorder of breast, unspecified ==